=== PATIENT | female | born 1970 | race Caucasian/White ===

== ENCOUNTER → 2017-04-14 | Outpatient (CLI) | payer OTHER ==
[2004-12-19 09:24] VITALS: TEMP 98.1
[~2017-04-14] MED LIST: NO HOME MEDICATIONS
== END ==
LOC: MC.RAD 14:00
DX: Z12.31 Encounter for screening mammogram for malignant neoplasm of breast (principal)

== ENCOUNTER → 2018-05-24 | Outpatient (CLI) | payer BC ==
[2004-12-19 09:24] VITALS: TEMP 98.1
== END ==
LOC: MC.RAD 11:40
DX: Z12.31 Encounter for screening mammogram for malignant neoplasm of breast (principal)

== ENCOUNTER 2019-02-20 02:18 | Emergency (ER) | payer BC ==
[~2019-02-20] VITALS: Ht 157.5 cm; Wt 65.9 kg
[2019-02-20 02:52] VITALS: TEMP 100.2
[2019-02-20 03:38] LABS: COLLECTION METHOD CLEAN CATCH
[2019-02-20 03:44] LABS: BASO % 0.5 % (0.0-2.0); EOS % 0.5 % (0-4.0); GRAN # 5.3 (1.4-6.5); GRAN % 81.1 % (42.2-75.2); HEMATOCRIT 40.6 % (37.0-47.0); HEMOGLOBIN 13.7 g/dl (12.5-16.0); LYMPH # 0.5 (1.2-3.4); MEAN CELL VOLUME 89 fl (80.0-100.0); MEAN CORPUSCULAR HEMOGLOBIN 30 pg (27.0-31.0); MEAN CORPUSCULAR HGB CONC 34 g/dl (33.0-37.0); MEAN PLATELET VOLUME 10.2 fl (7.4-10.4); MONO # 0.6 (0.1-0.6); MONO % 9.4 % (1.7-9.3); PLATELET COUNT 175 K/mm3 (130-400); RED BLOOD COUNT 4.58 M/mm3 (4.10-5.30); REDCELL DISTRIBUTION WIDTH-CV 11.7 % (11.5-14.5)
[2019-02-20 03:55] LABS: PH 6 (5-8); SQUAMOUS EPITHELIAL 0-2 /hpf; URINE APPEARANCE Clear; URINE BACTERIA Rare /hpf; URINE BILIRUBIN Negative (NEGATIVE); URINE BLOOD 3+ (NEGATIVE); URINE COLOR Yellow; URINE GLUCOSE Negative (NEGATIVE); URINE KETONE Negative (NEGATIVE); URINE LEUKOCYTE ESTERASE Negative (NEGATIVE); URINE NITRATE Negative (NEGATIVE); URINE PROTEIN(semi-quant) Negative (NEGATIVE); URINE UROBILINOGEN Negative (NEGATIVE)
[2019-02-20 03:56] LABS: ALANINE AMINOTRANSFERASE 8 U/L (9-52); ALKALINE PHOSPHATASE 73 U/L (50-136); ANION GAP 10 mmol/L (7-16); AST,SGOT 21 U/L (15-37); BILIRUBIN,TOTAL 0.5 mg/dL (0.0-1.0); BLOOD UREA NITROGEN 13 mg/dL (7-17); C-REACTIVE PROTEIN 1.9 mg/dL (0.0-0.9); CALCIUM 9.1 mg/dL (8.4-10.2); CARBON DIOXIDE 22 mmol/L (22-30); CHLORIDE 108 mmol/L (98-107); CREATINE KINASE 104 U/L (30-135); CREATININE, serum 0.79 (0.52-1.25); GLUCOSE 116 mg/dL (74-106); LIPASE 75 U/L (23-300); MAGNESIUM 2.1 mg/dL (1.6-2.3); POTASSIUM 4.1 mmol/L (3.4-5.0); SODIUM 140 mmol/L (137-145); TOTAL PROTEIN 7.2 gm/dL (6.4-8.2)
[2019-02-20 04:33] LABS: ERYTHROCYTE SEDIMENTATION RATE 4 mm/hr (0-20)
[2019-02-20 04:56] LABS: TROPONIN-I < 0.012 ng/mL (0.000-0.035)
[2019-02-20 08:48] VITALS: BP 115/76; PULSE 72
== END 2019-02-20 08:49 | disposition home or self-care (01) ==
LOC: COL.ER 02:18
PROVIDERS: Emergency Medicine
DX: M79.10 Myalgia, unspecified site (principal)
CPT/HCPCS: J7030; Q9967

== ENCOUNTER → 2019-11-06 | Outpatient (CLI) | payer BC ==
[2004-12-19 09:24] VITALS: TEMP 98.1
== END ==
LOC: MC.RAD 07:45
DX: Z12.31 Encounter for screening mammogram for malignant neoplasm of breast (principal)

== ENCOUNTER 2020-02-29 14:29 | Outpatient (RCR) | payer OTHER ==
[2004-12-19 09:24] VITALS: TEMP 98.1
== END 2020-04-21 | disposition home or self-care (01) ==
LOC: WSOH
DX: S80.00XA Contusion of unspecified knee, initial encounter (principal); M50.10 Cervical disc disorder with radiculopathy, unspecified cervical region; Y99.0 Civilian activity done for income or pay

== ENCOUNTER → 2020-04-02 | Outpatient (CLI) | payer OTHER | LOC: COL.RAD 12:09 | DX: M50.10 Cervical disc disorder with radiculopathy, unspecified cervical region (principal); S80.02XD Contusion of left knee, subsequent encounter; S80.01XD Contusion of right knee, subsequent encounter ==

== ENCOUNTER → 2020-11-18 | Outpatient (CLI) | payer BC | LOC: MC.RAD 07:30 | DX: Z12.31 Encounter for screening mammogram for malignant neoplasm of breast (principal) ==

== ENCOUNTER 2022-01-20 20:01 | Emergency (ER) | payer SELFPAY ==
[~2022-01-20] VITALS: Ht 157.5 cm; Wt 65.9 kg
[2022-01-20 22:31] VITALS: BP 130/74; PULSE 76; TEMP 98.3
== END 2022-01-20 22:31 | disposition home or self-care (01) ==
LOC: COL.ER 20:01
DX: M25.562 Pain in left knee (principal); M25.561 Pain in right knee; M25.532 Pain in left wrist; M25.531 Pain in right wrist; M54.50 Low back pain, unspecified; M54.2 Cervicalgia; R51.9 Headache, unspecified; R10.13 Epigastric pain; V43.53XA Car driver injured in collision with pick-up truck in traffic accident, initial encounter; Y92.410 Unspecified street and highway as the place of occurrence of the external cause
CPT/HCPCS: Q9967

== ENCOUNTER 2022-01-28 08:41 | Day surgery (SDC) | payer BC ==
[~2022-01-28] VITALS: Ht 157.5 cm; Wt 70.4 kg
[~2022-01-28 08:41] MED LIST changes: -PHARMASSURE ZIN50 MG PO; -VITAMIN B12 781 TAB PO; -VITAMIN D31000 I1 PO; -VIVLODEX5 MG PO; -VTAMINC250TA
[2022-01-28] MEDS ORDERED: VTAMINC250TA (09:06)
[2022-01-28] MEDS ORDERED: VITAMIN D31000 I1 PO (09:07)
[2022-01-28] MEDS ORDERED: VITAMIN B12 781 TAB PO (09:08)
[2022-01-28] MEDS ORDERED: PHARMASSURE ZIN50 MG PO (09:09)
[2022-01-28 09:37] VITALS: BP 114/82; PULSE 77; TEMP 97.2
[2022-01-28] MEDS ORDERED: VIVLODEX5 MG PO (10:09)
[2022-01-28 10:46] VITALS: BP 108/79; PULSE 68; TEMP 97.1
[2022-01-28 11:01] VITALS: BP 106/75; PULSE 61
[2022-01-28 11:16] VITALS: BP 116/73; PULSE 62
[2022-01-28 11:30] VITALS: BP 124/78; PULSE 66
--- NOTE | 2022-01-28 11:54 | NUR ---
1046 PT RETURNED TO [facility] VIA CART, TRANSFERED TO CHAIR WITH RN ASSIST. ALERT AND ORIENTED, BUT DROWSY. MONITORS ATTACHED, INTERVALS AND ALARMS SET. PT DENIES ANY PAIN OR NAUSEA. PT REQUEST TO REST, WARM BLANKET PROVIDED. 1101 VSS. PT REQUEST APPLE JUICE AND TOAST. RIDE CALLED. 1116 PT TOLERATING FOOD AND DRINK WELL. VSS. 1130 VSS. IV DISCONTINUED WITHOUT COMPLICATIONS. PT ALLOWED TO DRESS. WAITING FOR DR TO SPEAK WITH PT. 1145 PT REPORTS SPEAKING WITH DR. TREVINO, DENIES QUESTIONS. REVIEWED DISCHARE INSTRUCTIONS AND EDUCATION PACKET, ANSERED ALL QUESTIONS. 1154 TRANSFERED PT VIA WHEELCHAIR TO PERSONAL VEHICLE TO BE [facility]IVEN [facility].
== END 2022-01-28 11:54 | disposition home or self-care (01) ==
LOC: SDCO 08:41
DX: Z12.11 Encounter for screening for malignant neoplasm of colon (principal); E66.3 Overweight
CPT/HCPCS: J2704; J7120

== ENCOUNTER → 2022-01-28 | Outpatient (CLI) | payer BC ==
[~2022-01-28] MED LIST changes: +PHARMASSURE ZIN50 MG PO; +VITAMIN B12 781 TAB PO; +VITAMIN D31000 I1 PO; +VIVLODEX5 MG PO; +VTAMINC250TA
== END ==
LOC: MC.RAD 07:30
DX: N60.02 Solitary cyst of left breast (principal)

== ENCOUNTER 2024-01-05 13:55 | Outpatient (RCR) | payer OTHER ==
[2004-12-19 09:24] VITALS: BP 114/68; PULSE 66; TEMP 98.1
[~2024-01-05 13:55] MED LIST changes: +PHARMASSURE ZIN50 MG PO; +VITAMIN B12 781 TAB PO; +VITAMIN D31000 I1 PO; +VIVLODEX5 MG PO; +VTAMINC250TA
[2024-01-19] MEDS ORDERED: SOMA 350MG350 MG/TAB PO (19:17)
[2024-01-19] MEDS ORDERED: MOTRIN 800800 MG/TAB PO (19:17)
[2024-01-19] MEDS ORDERED: PERCOCET 325 MG1 TA2 PO (19:17)
[2024-01-19] MEDS ORDERED: PREDNISONE20 MG PO (19:17)
== END 2024-01-15 ==
LOC: WSOH → EDSEX 13:55 → WSOH 13:55
DX: M51.16 Intervertebral disc disorders with radiculopathy, lumbar region (principal)

== ENCOUNTER → 2024-01-25 | Outpatient (CLI) | payer OTHER, BC ==
[2004-12-19 09:24] VITALS: TEMP 98.1
[~2024-01-25] MED LIST changes: +MOTRIN 800800 MG/TAB PO; +PERCOCET 325 MG1 TA2 PO; +PREDNISONE20 MG PO; +SOMA 350MG350 MG/TAB PO
== END ==
LOC: COL.RAD 10:28
DX: M51.16 Intervertebral disc disorders with radiculopathy, lumbar region (principal); M48.061 Spinal stenosis, lumbar region without neurogenic claudication

== ENCOUNTER → 2024-05-28 | Outpatient (CLI) | payer BC ==
[2004-12-19 09:24] VITALS: TEMP 98.1
== END ==
LOC: MC.RAD 06:05
DX: Z12.31 Encounter for screening mammogram for malignant neoplasm of breast (principal)